=== PATIENT | female | born 1995 | race Two or more races ===

== ENCOUNTER 2022-06-13 12:29 | Emergency (ER) | payer MEDICAID, OTHER ==
[~2022-06-13] VITALS: Ht 165.1 cm; Wt 95.7 kg
[2022-06-13 13:56] VITALS: BP 109/74
== END 2022-06-13 17:45 | disposition left against medical advice (07) ==
LOC: ER 12:29
DX: M54.6 Pain in thoracic spine (principal); Z53.21 Procedure and treatment not carried out due to patient leaving prior to being seen by health care provider